=== PATIENT | female | born 1960 | race Caucasian/White ===

== ENCOUNTER 2022-11-02 07:45 | Outpatient (OUT) | payer BC, SELFPAY ==
[2022-11-02 07:55] LABS: Hemoglobin 12.8 g/dL (12.0-16.0); Mean Corpuscular HGB Conc 32.8 g/dL (29.9-35.2); Mean Corpuscular Hemoglobin 29.5 pg (26.7-34.0); Mean Corpuscular Volume 89.9 fL (81.0-99.0); Mean Platelet Volume 10.7 fL (9.5-13.5); Platelet Count 278 10^3/uL (150-450); Red Blood Count 4.34 10^6/uL (4.20-5.40); Red Cell Distribution Width 13.9 % (11.0-15.0); White Blood Count 11.7 10^3/uL (4.0-11.0)
[2022-11-02 08:14] LABS: Estimated Average Glucose 140 mg/dL; Glycohemoglobin A1C 6.5 % (4.5-6.2)
[2022-11-02 08:38] LABS: Alanine Aminotransferase 42 U/L (14-59); Albumin Globulin Ratio 0.9; Albumin Level 3.7 g/dL (3.4-5.0); Alkaline Phosphatase 69 U/L (46-116); Anion Gap 8.7; Aspartate Amino Transferase 23 U/L (15-37); Bilirubin Total 0.7 mg/dL (0.2-1.0); Calcium 8.9 mg/dL (8.5-10.1); Carbon Dioxide 29.2 mmol/L (21.0-32.0); Chloride 102 mmol/L (98-107); Chol HDL Ratio 4.5; Cholesterol 236 mg/dL (<=200); Estimated GFR (African America >60 (>=60); Estimated GFR (Non-African Ame >60 (>=60); Globulin 4.1 g/dL; Glucose 121 mg/dL (74-106); HDL Cholesterol 53 mg/dL (40-60); Potassium 3.9 mmol/L (3.5-5.1); Sodium 136 mmol/L (136-145); Thyroid Stimulating Hormone 3.368 uIU/mL (0.358-3.740); Total Protein 7.8 g/dL (6.4-8.2); Triglycerides 232 mg/dL (<=150); VLDL CHOLESTEROL 46.4 mg/dL
[2022-11-02 09:04] LABS: Segmented Neut Absolute Manual 4.56 10^3/uL (1.4-6.5)
[2022-11-02 09:05] LABS: Atypical Lymphocytes Abs Man 0.4; Eosinophils Absolute Manual 0.35 10^3/uL (0.00-0.70); Lymphocytes Absolute Manual 6.08 10^3/uL (1.20-3.80); Monocytes Absolute Manual 0.35 10^3/uL (0.30-0.80)
== END 2022-11-02 07:46 | disposition home or self-care (01) ==
LOC: LAB 07:45
PROVIDERS: PCP Internal Medicine; Visit Provider Internal Medicine
DX: Z00.00 Encounter for general adult medical examination without abnormal findings (principal)
CPT/HCPCS: 36415; 80053; 80061; 83036; 84443; 85027

== ENCOUNTER 2023-05-22 09:26 | Outpatient (OUT) | payer BC, SELFPAY ==
--- NOTE | 2023-05-22 09:28 | MM_ITS ---
Patient Name: TEREZA MCMAHAN MR#: [id number] : 1960 Exam Date: 05/22/2023 Ordering Doctor: DR Rodríguez Landers . RADIOLOGY REPORT PROCEDURE: MM TOMOSYNTHESIS SCREENING BI COMPARISON: MG MAMM SCREEN 3D СВЕТЛАНА CAD, 11/03/2021. INDICATIONS: screening Calculator Name NCI Breast Cancer Risk Assessment Tool 5 Year Breast Cancer Risk 2.10% Lifetime Breast Cancer Risk 8.70% Personal Breast Cancer No Personal Ovarian Cancer No Treatments None Family Cancers Aunt-paternal with cervical cancer at age 45. LOCATION: [facility] BREAST COMPOSITION: Scattered areas fibroglandular density. FINDINGS: DIAGNOSTIC CATEGORY 2--BENIGN FINDING. NO CHANGE FROM COMPARISON. Scattered benign-appearing nodules are present. Scattered benign-appearing calcifications are present. Scattered benign-appearing lymph nodes are present. RIGHT BREAST: No significant suspicious finding. LEFT BREAST: No significant suspicious finding. RECOMMENDATIONS: ROUTINE MAMMOGRAM AND CLINICAL EVALUATION IN 12 MONTHS. PLEASE NOTE: A NORMAL MAMMOGRAM DOES NOT EXCLUDE THE POSSIBILITY OF BREAST CANCER. A CLINICALLY SUSPICIOUS PALPABLE LUMP SHOULD BE BIOPSIED. Dictated by: Ryan Keen MD on 05/23/2023 at 07:40 Approved by: Ryan Keen MD on 05/23/2023 at 07:41
== END 2023-05-22 09:27 | disposition home or self-care (01) ==
LOC: MAMMO 09:26
PROVIDERS: PCP Internal Medicine; Visit Provider Obstetrics & Gynecology
DX: Z12.31 Encounter for screening mammogram for malignant neoplasm of breast (principal); Z80.8 Family history of malignant neoplasm of other organs or systems
CPT/HCPCS: 77063; 77067

== ENCOUNTER 2024-06-19 09:58 | Outpatient (OUT) | payer BC, SELFPAY ==
--- NOTE | 2024-06-19 10:01 | MM_ITS ---
Patient Name: TEREZA MCMAHAN MR#: [id number] : 1960 Exam Date: 06/19/2024 Ordering Doctor: DR LALITA LAW . RADIOLOGY REPORT PROCEDURE: MM TOMOSYNTHESIS SCREENING BI COMPARISON: MM TOMOSYNTHESIS SCREENING BI, 05/22/2023. MG MAMM SCREEN 3D СВЕТЛАНА CAD, 11/03/2021. MG MAMM SCREEN 3D СВЕТЛАНА CAD, 10/22/2020. MG MAMM СВЕТЛАНА DIAG W CAD DIG, 06/12/2013. INDICATIONS: Screening Calculator Name NCI Breast Cancer Risk Assessment Tool 5 Year Breast Cancer Risk 2.10% Lifetime Breast Cancer Risk 8.40% Personal Breast Cancer No Personal Ovarian Cancer No Treatments None Family Cancers Aunt-paternal with cervical cancer at age 45. LOCATION: [facility] BREAST COMPOSITION: There are scattered areas of fibroglandular density. FINDINGS: DIAGNOSTIC CATEGORY 1--NEGATIVE. RIGHT BREAST: No significant suspicious finding. LEFT BREAST: No significant suspicious finding. RECOMMENDATIONS: ROUTINE MAMMOGRAM AND CLINICAL EVALUATION IN 12 MONTHS. PLEASE NOTE: A NORMAL MAMMOGRAM DOES NOT EXCLUDE THE POSSIBILITY OF BREAST CANCER. A CLINICALLY SUSPICIOUS PALPABLE LUMP SHOULD BE BIOPSIED. Dictated by: Robert Mata DO on 06/19/2024 at 16:07 Approved by: Robert Mata DO on 06/19/2024 at 16:12
== END 2024-06-19 09:59 | disposition home or self-care (01) ==
LOC: MAMMO 09:58
PROVIDERS: PCP Internal Medicine; Visit Provider Obstetrics & Gynecology
DX: Z12.31 Encounter for screening mammogram for malignant neoplasm of breast (principal); Z80.8 Family history of malignant neoplasm of other organs or systems
CPT/HCPCS: 77063; 77067

== ENCOUNTER 2024-11-18 08:54 | Outpatient (OUT) | payer MEDICARE, OTHER, SELFPAY | END 2024-11-18 08:55 | disposition home or self-care (01) | LOC: RAD 08:54 | PROVIDERS: PCP Internal Medicine; Visit Provider Internal Medicine | DX: Z78.0 Asymptomatic menopausal state (principal); M85.88 Other specified disorders of bone density and structure, other site | CPT/HCPCS: 77080 ==